=== PATIENT | male | born 1965 | race Caucasian/White ===

== ENCOUNTER 2016-08-25 13:36 | Emergency (ER) | payer BC ==
[~2016-08-25 13:36] MED LIST: ZYLOPRIM
== END 2016-08-25 14:16 | disposition home or self-care (01) ==
LOC: SED 13:36
DX: S61.213A Laceration without foreign body of left middle finger without damage to nail, initial encounter (principal); Z23 Encounter for immunization; W23.0XXA Caught, crushed, jammed, or pinched between moving objects, initial encounter; Y92.009 Unspecified place in unspecified non-institutional (private) residence as the place of occurrence of the external cause
CPT/HCPCS: 12001; 90471; 90715; 99283